=== PATIENT | male | born 1985 | race Caucasian/White ===

== ENCOUNTER 2017-07-13 03:11 | Emergency (ER) | payer MEDICAID, OTHER ==
[2017-07-13] MEDS: LIDOCAINE/MYLANTA 40 ML BTL PO (05:06)
== END 2017-07-13 05:45 | disposition home or self-care (01) ==
LOC: FTE 03:11
DX: R07.89 Other chest pain (principal)
CPT/HCPCS: 71045; 93005; 99284-25

== ENCOUNTER 2017-07-17 23:47 | Emergency (ER) | payer MEDICAID ==
[2017-07-18] MEDS: ALPRAZOLAM 1 MG TAB PO (02:11)
== END 2017-07-18 03:17 | disposition home or self-care (01) ==
LOC: FTE 23:47
DX: F41.9 Anxiety disorder, unspecified (principal); N50.3 Cyst of epididymis
CPT/HCPCS: 76870; 93005; 99284-25

== ENCOUNTER 2019-01-11 16:47 | Emergency (ER) | payer OTHER, MEDICAID ==
[2019-01-11] MEDS: ASPIRIN 325 MG TAB PO (19:04)
[2019-01-11] MEDS: SOD CHLORIDE 0.9% 1,000 ML IV (19:04)
[2019-01-11] MEDS: FAMOTIDINE 20 MG INJ IV (19:04)
[2019-01-11 19:10] LABS: ADD MAN DIFF? NO
[2019-01-11 19:19] LABS: WHITE BLOOD COUNT 4.8 10^3/ul (4.8-10.8)
[2019-01-11 19:19] LABS: BASOPHILS % 0.4 % (0.0-2.0); EOSINOPHILS # 0.1 10^3/ul (0.0-0.5); EOSINOPHILS % 1.7 % (0.0-7.0); HEMATOCRIT 45.7 % (42.0-52.0); HEMOGLOBIN 15.1 g/dl (14.0-18.0); LYMPHOCYTES # 1.4 10^3/ul (0.8-2.9); LYMPHOCYTES % 28.3 % (15.0-51.0); MEAN CORPUSCULAR HEMOGLOBIN 30.3 pg (29.0-33.0); MEAN CORPUSCULAR VOLUME 91.6 fl (82.0-101.0); MEAN PLATELET VOLUME 11.4 fl (7.4-10.4); MONOCYTE # 0.6 10^3/ul (0.3-0.9); MONOCYTES % 11.7 % (0.0-11.0); NEUTROPHIL # 2.8 10^3/ul (1.6-7.5); NEUTROPHILS % 57.7 % (39.0-77.0); PLATELET COUNT 193 10^3/UL (140-415); RED BLOOD COUNT 4.99 10^6/ul (4.70-6.10); RED CELL DISTRIBUTION WIDTH 12.7 % (11.5-14.5)
[2019-01-11 19:33] LABS: ANION GAP 8 (5-13); BLOOD UREA NITROGEN 12 mg/dl (7-20); CALCIUM 9.3 mg/dl (8.4-10.2); CARBON DIOXIDE 29 mmol/L (21-31); CHLORIDE 101 mmol/L (97-110); CREATININE 0.99 mg/dl (0.61-1.24); Estimated GFR > 60 mL/min (>60); GLUCOSE 104 mg/dl (70-220); POTASSIUM 3.6 mmol/L (3.5-5.1); SODIUM 138 mmol/L (135-144)
[2019-01-11 19:45] LABS: TROPONIN-I < 0.012 ng/ml (0.000-0.120)
[2019-01-11 21:49] LABS: TROPONIN-I < 0.012 ng/ml (0.000-0.120)
== END 2019-01-11 20:21 | disposition home or self-care (01) ==
LOC: FTE 16:47
DX: R07.9 Chest pain, unspecified (principal)
CPT/HCPCS: 36415; 71045; 80048; 84484; 85025; 93005; 96374; 99285-25